=== PATIENT | male | born 1970 | race Caucasian/White ===

== ENCOUNTER 2017-11-07 11:57 | Emergency (ER) | payer SELFPAY ==
[2017-11-07 12:13] VITALS: RESP 20; O2SAT 98
[2017-11-07] MEDS ORDERED: Sodium Chloride 0.9% 1,000 ML IV ONE (12:21)
--- NOTE | 2017-11-07 12:24 | C.PDOC ---
History Of Present Illness Patient with PMH of IDDM sent to ER from clinic for evaluation of high blood sugar. Patient states he has not taken his insulin in 2 weeks. States he traveled to [place] for a wedding and forgot his medicine, returned yesterday. Patient denies fever, chills, chest pain, SOB, nausea, vomiting, abdominal pain or headache. Time Seen by Provider: 11/07/17 12:13 Chief Complaint (Nursing): High Blood Sugar History Per: Patient History/Exam Limitations: no limitations Onset/Duration Of Symptoms: Days Current Diabetic Medications: Insulin Causative (Exacerbating) Factor(s): Missed Taking Medication Past Medical History Reviewed: Historical Data, Nursing Documentation, Vital Signs Vital Signs: Last Vital Signs Temp 98.9 F 11/07/17 15:01 Pulse 85 11/07/17 15:01 Resp 20 11/07/17 15:01 BP 127/89 11/07/17 15:01 Pulse Ox 98 11/07/17 15:01 - Medical History PMH: Diabetes, HTN - [facility] Procedures ARTHROCENTESIS (08/08/13) Family History: States: Hypertension - Social History Hx Tobacco Use: Yes Hx Alcohol Use: No Hx Substance Use: Yes (heroin and tobacco) - Immunization History Hx Tetanus Toxoid Vaccination: No Hx Influenza Vaccination: No Hx Pneumococcal Vaccination: No Review Of Systems Except As Marked, All Systems Reviewed And Found Negative. Constitutional: Negative for: Fever, Chills Cardiovascular: Negative for: Chest Pain Respiratory: Negative for: Shortness of Breath Gastrointestinal: Negative for: Nausea, Vomiting, Abdominal Pain Neurological: Negative for: Headache, Dizziness Physical Exam - Physical Exam Appears: Non-toxic, No Acute Distress Skin: Warm, Dry, No Rash Head: Atraumatic, Normacephalic Eye(s): bilateral: Normal Inspection, PERRL, EOMI Oral Mucosa: Moist Lips: Normal Appearing Throat: Normal, No Erythema, No Exudate Chest: Symmetrical, No Tenderness Cardiovascular: Rhythm Regular, No Murmur Respiratory: Normal Breath Sounds, No Rales, No Rhonchi, No Stridor, No Wheezing Gastrointestinal/Abdominal: Normal Exam, Soft, No Tenderness, No Guarding, No Rebound Extremity: Bilateral: Atraumatic, Normal Color And Temperature, Normal ROM Neurological/Psych: Oriented x3, Normal Speech, Normal Motor, Normal Sensation Gait: Steady ED Course And Treatment - Laboratory Results Result Diagrams: 11/07/17 12:49 11/07/17 12:49 Lab Interpretation: Abnormal O2 Sat by Pulse Oximetry: 98 (RA) Pulse Ox Interpretation: Normal Medical Decision Making Medical Decision Making: PLAN: * CBC * CMP * Urinalysis * Sodium Chloride IV Progress: Labs reviewed, hyperglyemia. No acidosis or ketones to support DKA. Patient treated with fluids and insulin On re-eval patient remains seated comfortable in no distress. He feels well and is asking for discharge, wants refill on his DM and HTN medications. Patient is stable for discharge Disposition Counseled Patient/Family Regarding: Diagnosis, Need For Followup, Rx Given - Disposition Referrals: [facility] [Outside] [facility] [Outside] Disposition: HOME/ ROUTINE Disposition Time: 14:10 Condition: STABLE Additional Instructions: Prescripciones enviadas a [place] Por favor, tome kranthi medicamentos segn las indicaciones Realice un seguimiento con la clnica o el mdico de atencin primaria para obtener ms atencin Prescriptions: GlipiZIDE SR [Glucotrol XL] 10 mg PO DAILY #30 tab Insulin Aspart Prot/Insuln Asp [Novolog Mix 70-30 Vial] 20 unit SQ DAILY 30 Days #6 vial Insulin Aspart, Recombinant [Novolog] 30 unit SQ DAILY 30 Days #3 vial Insulin Glargine,Hum.rec.anlog [Toujeo Solostar] 20 unit SQ DAILY #1 insuln.pen Lisinopril [Zestril] 2.5 mg PO DAILY #30 tablet Instructions: Diabetic Hyperglycemia (ED) Forms: Unruly (Ecuadorean) Print Language: CITIZEN OF [place] - POA Present On Arrival: Poor Glycemic Control - Clinical Impression Clinical Impression: Hyperglycemia, Poorly controlled diabetes mellitus, Medicine refill - PA / COUNTY COMMISSIONER / Resident Statement MD/DO has reviewed & agrees with the documentation as recorded. - Scribe Statement The provider has reviewed the documentation as recorded by the Khoiibcorrie Nieto All medical record entries made by the Scribe were at my direction and personally dictated by me. I have reviewed the chart and agree that the record accurately reflects my personal performance of the history, physical exam, medical decision making, and the department course for this patient. I have also personally directed, reviewed, and agree with the discharge instructions and disposition.
[2017-11-07] MEDS ORDERED: Sodium Chloride 0.9% 1,000 ML ONE (12:36)
[2017-11-07 12:57] LABS: HEMOGLOBIN 14.1 g/dL (12.0-18.0); MEAN CELL VOLUME 83.8 fL (80.0-94.0); MEAN CORPUSCULAR HEMOGLOBIN 28.7 pg (27.0-31.0); MEAN CORPUSCULAR HGB CONC 34.3 g/dL (33.0-37.0); MEAN PLATELET VOLUME 9.4 fL (7.2-11.7); RBC 4.9 Mil/uL (4.40-5.90); RED CELL DISTRIBUTION WIDTH 11.9 % (11.5-14.5); WHITE BLOOD COUNT 12.1 K/uL (4.8-10.8)
[2017-11-07 13:02] LABS: SQUAMOUS EPITHIAL < 1 /hpf (0-5); URINE BILIRUBIN NEGATIVE (NEGATIVE); URINE BLOOD NEGATIVE (NEGATIVE); URINE CLARITY Clear (Clear); URINE COLOR Straw (YELLOW); URINE GLUCOSE (UA) 3+ mg/dL (Normal); URINE LEUKOCYTE ESTERASE NEG Leu/uL (Negative); URINE NITRATE NEGATIVE (NEGATIVE); URINE PROTEIN NEGATIVE (NEGATIVE)
[2017-11-07 13:22] LABS: ALB/GLOB RATIO 1.1 (1.0-2.1); ALBUMIN 3.9 g/dL (3.5-5.0); ALT/SGPT 116 U/L (21-72); AST/SGOT 130 U/L (17-59); BLOOD UREA NITROGEN 21 mg/dL (9-20); CALCIUM 8.1 mg/dl (8.6-10.4); GFR AFRICAN-AMERICAN > 60; GFR NON-AFRICAN AMERICAN > 60
[2017-11-07] MEDS ORDERED: (Novolin R) Insulin Human Regular 100 units/ml vial IV ONE (13:34)
[2017-11-07 15:02] VITALS: BP 127/89; PULSE 85; TEMP 98.9
== END 2017-11-07 15:02 | disposition home or self-care (01) ==
LOC: C.ER 11:57
DX: E11.65 Type 2 diabetes mellitus with hyperglycemia (principal); Z76.0 Encounter for issue of repeat prescription; I10 Essential (primary) hypertension; Z87.891 Personal history of nicotine dependence
CPT/HCPCS: 80053; 81001; 82948; 85027; 96360; 99285; J7040

== ENCOUNTER 2018-12-30 19:33 | Emergency (ER) | payer OTHER | END 2018-12-30 23:57 | disposition home or self-care (01) | LOC: C.ER 19:33 ==